=== PATIENT | male | born 1970 | race Caucasian/White ===

== ENCOUNTER 2017-05-07 09:18 | Emergency (ER) | payer OTHER ==
[~2017-05-07] VITALS: Ht 188 cm; Wt 81.6 kg
--- NOTE | 2017-05-07 09:44 | PHYS DOC ---
Past History Past Medical History: No Pertinent History Smoking: Non-smoker Drug Use: None Adult General Chief Complaint Chief Complaint: low back pain HPI HPI 46-year-old male patient without history of back pain complaining of sudden onset of low back pain that started when he woke up one week ago as a constant right lower back pain with radiation to right hip that getting worse with standing up. Patient states his pain getting force since yesterday and this morning was not able to move around because of severe pain and rated his pain 10 over 10. Patient denies focal neurodeficit and urine and bowel incontinence and history of injury. Patient states he used icy hot and took [id number] Naprosyn without improvement of his pain. Denies chest pain, shortness of breath , abdominal pain. Patient states he had a bowel movement 2 days ago without having history of constipation. Review of Systems Review of Systems Constitutional: Denies fever or chills [] Eyes: Denies change in visual acuity, redness, or eye pain [] HENT: Denies nasal congestion or sore throat [] Respiratory: Denies cough or shortness of breath [] Cardiovascular: No additional information not addressed in HPI [] GI: Denies abdominal pain, nausea, vomiting, bloody stools or diarrhea [] : Denies dysuria or hematuria [] Musculoskeletal: Reports back pain Integument: Denies rash or skin lesions [] Neurologic: Denies headache, focal weakness or sensory changes [] Endocrine: Denies polyuria or polydipsia [] All other systems were reviewed and found to be within normal limits, except as documented in this note. Physical Exam Physical Exam Constitutional: Well developed, well nourished, moderate distress, non-toxic appearance. [] HENT: Normocephalic, atraumatic, oropharynx moist Eyes: PERRLA, EOMI, conjunctiva normal, no discharge. [] Neck: Normal range of motion, no tenderness, supple, no stridor. [] Cardiovascular:Heart rate regular rhythm, no murmur [] Lungs & Thorax: Bilateral breath sounds clear to auscultation [] Abdomen: Bowel sounds normal, soft, no tenderness, no masses, no pulsatile masses. [] Skin: Warm, dry, no erythema, no rash. [] Back: No tenderness, limited range of motion of lumbar spine without midline tenderness, right paraspinal spasm Extremities: No tenderness, no cyanosis, no clubbing, ROM intact, no edema. [] Neurologic: Alert and oriented X 3, normal motor function, normal sensory function, no focal deficits noted. [] Psychologic: Affect normal, judgement normal, mood normal. [] EKG EKG [] Radiology/Procedures Radiology/Procedures [] [address] [address] IMAGING REPORT Signed PATIENT: ELIDA SOTO ACCOUNT: [id number] : 1970 LOCATION: ER AGE: 46 SEX: M EXAM STATUS: REG ER ORD. PHYSICIAN: JAC MCCLELLAN MD REASON: low back pain for 1 week, no injury PROCEDURE: CT LUMBAR SPINE WO CONTRAST CT of the lumbar spine without contrast, 05/07/2017: History: Back pain Noncontrast scans were obtained with multiplanar reconstructions produced. No fracture or destructive bony lesion is seen. There is minimal spurring and endplate sclerosis at L5-S1. There are minimal degenerative changes involving scattered facet joints in the lower lumbar spine. There is no evidence of spondylolysis. No significant posterior disc bulge or protrusion is seen at L1-2, L2-3 or L3-4. The central spinal canal and neural foramina are well preserved. At L4-5 there is moderate posterior disc bulging at the midline. The thecal sac narrows down to an AP diameter of 6-7 mm at the midline at this level. There is mild inferior foraminal narrowing bilaterally. At L5-S1 there is moderate broad-based posterior disc bulging. This effaces the anterior epidural fat but does not appear to significantly compress or displace the S1 nerve root sleeves. The thecal sac measures 9 to 10 mm in AP diameter at the midline. There is mild bilateral inferior foraminal narrowing. IMPRESSION: 1. Mild scattered degenerative changes as noted above. 2. Moderate posterior disc bulge at L4-5 with mild associated central spinal stenosis. 2. Moderate posterior disc bulging at L5-S1. PQRS Compliance Statement: One or more of the following individualized dose reduction techniques were utilized for this examination: 1. Automated exposure control 2. Adjustment of the mA and/or kV according to patient size 3. Use of iterative reconstruction technique Course & Med Decision Making Course & Med Decision Making Pertinent Labs and Imaging studies reviewed. (See chart for details) Condition of patient in ER showed 46-year-old male patient with lower back pain for 1 week with radiation to right posterior thigh. Patient had limited range of motion of lumbar spine without neurovascular deficit. CT of lumbar showed L4- L5 and L5-S1 moderate bulging disc. Patient treated with Norflex, Toradol, and hydrocodone in ER and felt better and ambulated but stated his pain improved partially. Patient informed that he needs to follow with on-call neurosurgeon and take prescribed medication including Doucette, ibuprofen, Medrol Dosepak and Flexeril apply ice on his back. Dragon Disclaimer Dragon Disclaimer This electronic medical record was generated, in whole or in part, using a voice recognition dictation system. Departure Departure: Impression: Primary Impression: Bulging of lumbar intervertebral disc Additional Impression: Constipation Disposition: 01 HOME, SELF-CARE Condition: IMPROVED Referrals: PCP,NO (PCP) Patient Instructions: Constipation, Adult, Sciatica Additional Instructions: Apply ice on the affected area. Follow-up with on-call neurosurgeon Dr. Vela in 1-2 days, call [phone] to make an appointment Return to ER if not getting better Scripts Hydrocodone Bit/Acetaminophen (NORCO 5-325 TABLET) 1 Each Tablet 1 TAB PO PRN Q6HRS Y for PAIN, #14 TAB 0 Refills Prov: JAC MCCLELLAN MD 05/07/17 Ibuprofen (IBUPROFEN) 800 Mg Tablet 1 TAB PO TID, #30 TAB Prov: JAC MCCLELLAN MD 05/07/17 Cyclobenzaprine Hcl (CYCLOBENZAPRINE HCL) 10 Mg Tablet 1 TAB PO TID, #30 TAB Prov: JAC MCCLELLAN MD 05/07/17 Methylprednisolone (MEDROL) 4 Mg Tab.ds.pk 1 PKG PO UD, #1 PKG Prov: JAC MCCLELLAN MD 05/07/17 Problem Qualifiers JAC MCCLELLAN MD May 07, 2017 09:44
--- NOTE | 2017-05-07 09:59 | RAD ---
CT of the lumbar spine without contrast, 05/07/2017: History: Back pain Noncontrast scans were obtained with multiplanar reconstructions produced. No fracture or destructive bony lesion is seen. There is minimal spurring and endplate sclerosis at L5-S1. There are minimal degenerative changes involving scattered facet joints in the lower lumbar spine. There is no evidence of spondylolysis. No significant posterior disc bulge or protrusion is seen at L1-2, L2-3 or L3-4. The central spinal canal and neural foramina are well preserved. At L4-5 there is moderate posterior disc bulging at the midline. The thecal sac narrows down to an AP diameter of 6-7 mm at the midline at this level. There is mild inferior foraminal narrowing bilaterally. At L5-S1 there is moderate broad-based posterior disc bulging. This effaces the anterior epidural fat but does not appear to significantly compress or displace the S1 nerve root sleeves. The thecal sac measures 9 to 10 mm in AP diameter at the midline. There is mild bilateral inferior foraminal narrowing. IMPRESSION: 1. Mild scattered degenerative changes as noted above. 2. Moderate posterior disc bulge at L4-5 with mild associated central spinal stenosis. 2. Moderate posterior disc bulging at L5-S1. PQRS Compliance Statement: One or more of the following individualized dose reduction techniques were utilized for this examination: 1. Automated exposure control 2. Adjustment of the mA and/or kV according to patient size 3. Use of iterative reconstruction technique
[2017-05-07] MEDS ORDERED: HYDROcodone/APAP 5/325MG 1 TAB TABLET PO ONE (10:00)
[2017-05-07] MEDS ORDERED: KETOROLAC 60 MG/2 ML VIAL. IM ONE (10:00)
[2017-05-07] MEDS ORDERED: ORPHENADRINE CITRATE 60 MG/2 ML VIAL. IM ONE (10:00)
[2017-05-07 10:54] VITALS: BP 112/60
[2017-05-07 11:55] LABS: BILIRUBIN,URINE NEG (NEG); CLARITY,URINE HAZY; COLOR,URINE AMBER; GLUCOSE,URINE NEG (NEG)
[2017-05-07 11:56] LABS: AMORPHOUS SEDIMENT,UR PRESENT /HPF; BACTERIA,URINE 0 /HPF (0-FEW); HYALINE CASTS, URINE OCC /HPF; NITRITE,URINE NEG (NEG); RBC,URINE 0 /HPF (0-2); SQUAMOUS EPITHELIAL CELL,UR OCC /LPF; UROBILINOGEN,URINE 1 mg/dL (0.2 mg/dL); WBC,URINE 0 /HPF (0-4)
[2017-05-07] MEDS ORDERED: CYCL-331 PO (12:04)
[2017-05-07] MEDS ORDERED: IBUP800T19 PO (12:04)
[2017-05-07] MEDS ORDERED: HYDR-971 PO (12:04)
[2017-05-07] MEDS ORDERED: METH4TAB2 PO (12:04)
== END 2017-05-07 12:14 | disposition home or self-care (01) ==
LOC: ER 09:18
DX: M51.26 Other intervertebral disc displacement, lumbar region (principal); K59.00 Constipation, unspecified
CPT/HCPCS: 72131; 81001; 96372; 99285; J1885; J2360